=== PATIENT | male | born 1930 | race Caucasian/White ===

== ENCOUNTER 2017-07-19 12:39 | Emergency (ER) | payer MEDICARE, BC ==
--- NOTE | 2017-07-19 13:20 | ERNOTE ---
Integumentary HPI - Narrative Date of Service: 07/19/17 - General Presenting Symptoms: other - "Scratch" on leg Time Seen by Provider: 07/19/17 13:01 Source: patient, RN notes reviewed Exam Limitations: no limitations - Immun/Allergies/Home Medications Immunizations: IMMUNIZATION HX Immunizations Up to Date Yes History of Influenza Vaccine Yes Hx Pneumococcal Vaccination Yes Allergies/Adverse Reactions: Allergies Allergy/AdvReac Type Severity Reaction Status Date / Time Penicillins Allergy Intermediate Swelling Verified 07/19/17 12:56 (Other) Home Medications: HOME MEDICATIONS Metoprolol Succinate 100 mg PO DAILY 07/31/12 [Last Taken Unknown] Amitriptyline HCl [Elavil] 10 mg PO HS #30 tablet 08/16/13 [Last Taken Unknown] Calcium Polycarbophil [Fibercon] 2 tab PO TID #180 tablet 08/16/13 [Last Taken Unknown] Dicyclomine HCl [Bentyl] 10 mg PO TID #90 capsule 08/16/13 [Last Taken Unknown] Furosemide [Lasix] 20 mg PO DAILY #30 tablet 05/28/14 [Last Taken Unknown] Levothyroxine Sodium [Synthroid] 175 mcg PO DAILY@0700 05/28/14 [Last Taken Unknown] Omeprazole [Prilosec] 40 mg PO DAILY #30 cap 05/28/14 [Last Taken Unknown] Terazosin HCl [Hytrin] 5 mg PO HS 05/28/14 [Last Taken Unknown] Albuterol Sulfate [Proair Hfa] 1 - 2 puff IH Q4H PRN #1 inhaler 10/28/14 [Last Taken Unknown] Doxycycline Hyclate [Vibratab] 100 mg PO BID #20 tab 10/28/14 [Last Taken Unknown] predniSONE [Prednisone] 1 tab PO TID #15 tab 10/28/14 [Last Taken Unknown] Levofloxacin 500 mg PO DAILY #10 tablet 10/31/15 [Last Taken Unknown] Tiotropium Cement [Spiriva] 1 cap IH DAILY #30 cap 10/31/15 [Last Taken Unknown ] predniSONE [Prednisone] 3 tab PO DAILY #15 tab 10/31/15 [Last Taken Unknown] Triamcinolone Acetonide [Kenalog 0.1%] 15 gm TP BID #1 tube 07/19/17 [Last Taken Unknown] - History of Present Illness Narrative: Juan is a 86 year old male who presents to the ED for a "scratch" on his right lower leg that has been there for a long time but will not completely go away. He reports that it gets better if he uses vaseline on it for a while, but then it comes back. The area is not painful but does itch occasionally. Location: Reports: lower extremity Quality: Reports: itching Exposure: Reports: no cause identified Prior Treatment: Denies: recently seen Review of Systems - Review of Systems Constitutional: Absent: fever, chills, malaise EYE: Present: no symptoms reported ENT: Present: no symptoms reported Respiratory: Absent: shortness of breath, cough Cardiology: Absent: chest pain, palpitations, edema Gastrointestinal/Abdominal: Absent: nausea, eating less, drinking less Genitourinary: Present: no symptoms reported Musculoskeletal: Absent: joint pain, joint swelling Skin: Present: lesions, change in color. Absent: rash, lumps Neurological: Absent: weakness, numbness, tingling Endocrine: Present: no symptoms reported Hematologic/Lymphatic: Present: no symptoms reported Psych: Present: no symptoms reported - Patient's Past Medical History Patient History - Medical: No pertinent hx Patient History - Cardiac/Respiratory: Hypertension Patient History - Cancer: No Hx of Cancer Patient History - Surgical Procedures: Appendectomy, Other Patient History - Other: None - Social History Living Situations: home Psych History: No pertinent hx Smoking Status: Never smoker Alcohol Use: none Drug Use: none - Immunizations Immunizations Up to Date: Yes Hx Pneumococcal Vaccination: Yes History of Influenza Vaccine: Yes Physical Exam - Physical Exam General Appearance: Present: wd/wn, alert, no apparent distress Head Exam: Present: normal inspection Ears, Nose, Throat: Present: normal except -, hearing decreased Neck: Present: normal inspection, nontender, supple Respiratory: Present: no respiratory distress, normal breath sounds, no accessory muscle use, lungs clear Cardiovascular/Chest: Present: regular rate, rhythm, no murmur, normal peripheral pulses Extremity Exam: Present: non-tender, normal range of motion, no edema Neurological Exam: Present: alert, oriented, normal mood/affect, no motor/ sensory deficits Skin Exam: Present: normal color, warm/dry, other - Dry scaley area to right lower lateral leg, no erythema or edema, nontender to touch ED Progress - Vital Signs Patient's Vital Signs:: I have reviewed the patient's vital signs. 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
[2017-07-19 13:32] VITALS: BP 128/66
== END 2017-07-19 13:22 | disposition home or self-care (01) ==
LOC: ER 12:39
DX: I87.2 Venous insufficiency (chronic) (peripheral)

== ENCOUNTER 2017-08-05 10:23 | Emergency (ER) | payer MEDICARE, BC ==
[2017-08-05] MEDS ORDERED: ACETAMINOPHEN 325 MG TABLET PO ONE (10:44)
[2017-08-05] MEDS ORDERED: ACETAMINOPHEN 325 MG TABLET ONE (10:56)
[2017-08-05 11:01] LABS: Hematocrit 37.6 % (42.0-52.0); Hemoglobin 13.2 gm/dL (13.5-18.0); Mean Cell Volume 93.8 fl (78-100); Mean Corpuscular Hemoglobin 32.9 pg (27-31); Mean Corpuscular Hgb Conc 35.1 g/dl (32-36); Mean Platelet Volume 11.1 fl (6.0-9.5); Neutrophil # 5.1 K/mm3 (1.3-6.0); Neutrophil % 83.3 % (42-75.0); Platelet Count 130 K/mm3 (150-450); Red Blood Count 4.01 M/mm3 (4.7-6.0); Red Cell Distribution Width 12.4 % (11.5-14.0); White Blood Count 6.1 K/mm3 (4.0-10.5)
[2017-08-05 11:15] LABS: Albumin * 3.8 gm/dl (3.4-5.0); Anion Gap 13.2 mmol/L (6.8-13.8); BUN/Creatinine Ratio 14.5 (9.0-21.6); Bilirubin, Total 0.8 mg/dL (0.0-1.1); CRP 3.4 mg/dL (0.0-0.9); Ca. Corrected For Albumin 7.9 mg/dL (8.4-10.2); Calcium * 8.1 mg/dL (7.9-10.9); Potassium 4.2 mmol/L (3.4-4.6)
[2017-08-05 11:22] LABS: Urine Appearance Slightly Cloudy; Urine Bilirubin Negative (NEGATIVE); Urine Blood 250 /ul (NEGATIVE); Urine Color Yellow; Urine Ketone 5 mg/dL (NEGATIVE)
[2017-08-05 11:23] LABS: Urine Bacteria 1+; Urine Fine Granular Cast 0-5 /LPF; Urine Hyaline Cast 0-5 /LPF; Urine Nitrite Negative (NEGATIVE); Urine Protein 100 mg/dL (NEGATIVE); Urine RBC 0-5 /hpf (0-5); Urine Urobilinogen Normal (NORMAL); Urine WBC 0-5 /hpf (0-5)
--- NOTE | 2017-08-05 12:43 | ERNOTE ---
Trauma/Assault HPI - Narrative Date of Service: 08/05/17 - General Stated Complaint: FALL HIT HEAD Time Seen by Provider: 08/05/17 10:36 Source: patient Exam Limitations: dementia - Immun/Allergies/Home Medications Immunizations: IMMUNIZATION HX Immunizations Up to Date Yes History of Influenza Vaccine More Information Required Hx Pneumococcal Vaccination More Information Required Allergies/Adverse Reactions: Allergies Penicillins Allergy (Intermediate, Verified 07/19/17 12:56) Swelling (Other) Home Medications: HOME MEDICATIONS Metoprolol Succinate 100 mg PO DAILY 07/31/12 [Last Taken Unknown] Amitriptyline HCl [Elavil] 10 mg PO HS #30 tablet 08/16/13 [Last Taken Unknown] Calcium Polycarbophil [Fibercon] 2 tab PO TID #180 tablet 08/16/13 [Last Taken Unknown] Dicyclomine HCl [Bentyl] 10 mg PO TID #90 capsule 08/16/13 [Last Taken Unknown] Furosemide [Lasix] 20 mg PO DAILY #30 tablet 05/28/14 [Last Taken Unknown] Levothyroxine Sodium [Synthroid] 175 mcg PO DAILY@0700 05/28/14 [Last Taken Unknown] Omeprazole [Prilosec] 40 mg PO DAILY #30 cap 05/28/14 [Last Taken Unknown] Terazosin HCl [Hytrin] 5 mg PO HS 05/28/14 [Last Taken Unknown] Albuterol Sulfate [Proair Hfa] 1 - 2 puff IH Q4H PRN #1 inhaler 10/28/14 [Last Taken Unknown] Doxycycline Hyclate [Vibratab] 100 mg PO BID #20 tab 10/28/14 [Last Taken Unknown] predniSONE [Prednisone] 1 tab PO TID #15 tab 10/28/14 [Last Taken Unknown] Levofloxacin 500 mg PO DAILY #10 tablet 10/31/15 [Last Taken Unknown] Tiotropium Lebo [Spiriva] 1 cap IH DAILY #30 cap 10/31/15 [Last Taken Unknown ] predniSONE [Prednisone] 3 tab PO DAILY #15 tab 10/31/15 [Last Taken Unknown] Triamcinolone Acetonide [Kenalog 0.1%] 15 gm TP BID #1 tube 07/19/17 [Last Taken Unknown] Oseltamivir Phosphate [Tamiflu] 75 mg PO BID #10 cap 08/05/17 [Last Taken Unknown] - History of Present Illness Narrative: patient fell this am, has been running a fever Location Occurred: Reports: other - correction Pain Location: Reports: head Method of Injury: Reports: fall Modifying Factors - (Improves): Reports: other - nothing Modifying Factors - (Worsens): Reports: movement Loss of Consciousness: Reports: no loss of consciousness Associated Symptoms - Trauma: Reports: dizziness Review of Systems - Narrative Narrative: unremarkable - Review of Systems Constitutional: Present: See HPI EYE: Present: no symptoms reported ENT: Present: nose congestion Respiratory: Present: cough, wheezing Cardiology: Present: no symptoms reported Gastrointestinal/Abdominal: Present: no symptoms reported Genitourinary: Present: no symptoms reported Musculoskeletal: Present: no symptoms reported Skin: Present: no symptoms reported Neurological: Present: no symptoms reported, other - dementia Endocrine: Present: no symptoms reported Hematologic/Lymphatic: Present: no symptoms reported Psych: Present: no symptoms reported - Patient's Past Medical History Patient History - Medical: No pertinent hx, Dementia Patient History - Cardiac/Respiratory: Hypertension Patient History - Cancer: No Hx of Cancer Patient History - Surgical Procedures: Appendectomy, Other Patient History - Other: None - Family History Family History:: no untoward family reactions to anesthesia, no familial bleeding tendencies, no family history of clotting disorders, no family history of premature - Social History Living Situations: assisted living Psych History: No pertinent hx Smoking Status: Never smoker Have you smoked in the past 12 months: No Do you dip or chew tobacco: No Patient requests Smoking Cessation Consult: No Initiate information on Smoking Cessation: No Alcohol Use: rarely Drug Use: none - Immunizations Immunizations Up to Date: Yes Hx Pneumococcal Vaccination: More Information Required to Determine History of Influenza Vaccine: More Information Required to Determine Physical Exam - Physical Exam General Appearance: Present: mild distress, anxious Head Exam: Present: normal inspection, no evidence of injury, other Eye Exam: Sclera injection: right - right hsubconjuntival hemorrhage Ears, Nose, Throat: Present: nasal congestion, sinus pain/drainage Neck: Present: normal inspection, nontender Respiratory: Present: no respiratory distress, wheezing, other - mild wheezing Cardiovascular/Chest: Present: regular rate, rhythm, no murmur, normal peripheral pulses Peripheral Pulses: N=norm/S=strong/W=weak/B=bound/A=absent: Carotid (R): Normal , Carotid (L): Normal, Radial (R): Normal, Radial (L): Normal, Femoral (R): Normal, Femoral (L): Normal, Dorsalis-pedis (R): Normal, Dorsalis-pedis (L): Normal Gastrointestinal/Abdominal: Present: normal bowel sounds, nontender, nondistended, soft, no organomegaly Back Exam: Present: normal inspection, normal range of motion, no CVA tenderness Extremity Exam: Present: normal inspection, non-tender, normal range of motion, no edema Neurological Exam: Present: alert, oriented, normal mood/affect, no motor/ sensory deficits DTR: N=norm/NB=norm/brisk/A=abs/DD=dull/dimin/HC=hyperactive: Bicep (R): Normal , Bicep (L): Normal, Tricep (R): Normal, Tricep (L): Normal, Knee (R): Normal, Knee (L): Normal, Ankle (R): Normal, Ankle (L): Normal Skin Exam: Present: normal color, warm/dry Lymphatic Exam: Present: no adenopathy ED Progress - Date and Time Seen: Date and Time: 08/05/17 12:39 patient improved - Results and Orders Patient's Lab Results:: I have reviewed the patient's lab results. - Vital Signs Patient's Vital Signs:: I have reviewed the patient's vital signs. Vital Signs: Vital Signs 08/05/17 08/05/17 10:31 11:00 Temperature 38.3 C H Pulse Rate 87 83 Respiratory 26 H Rate Blood Pressure 164/85 O2 Sat by Pulse 94 Oximetry - EKG EKG: NSR - X-Ray X-Ray #1 X-Ray: chest - no acute process Interpretation: Discd w/ radiologist - CT/Ultrasound CT/Ultrasound Narrative: no acute process reported by radiologist - Progress/Reassessment Chief Complaint: Fall - Transfer of Care Expected Disposition: Discharge Plan - Plan Plan: to be discharged Departure Clinical Impression: Fall, Influenza A - Departure Disposition: [place] self-care Condition: Fair Instructions: Influenza, Adult, [id number] Prescriptions: Oseltamivir Phosphate [Tamiflu] 75 mg PO BID #10 cap Critical Care Time - Critical Care Critical Time Spent:: No
[2017-08-05 13:47] VITALS: BP 134/88
== END 2017-08-05 12:55 | disposition home or self-care (01) ==
LOC: ER 10:23
DX: J10.1 Influenza due to other identified influenza virus with other respiratory manifestations (principal); H11.31 Conjunctival hemorrhage, right eye; I10 Essential (primary) hypertension; W19.XXXA Unspecified fall, initial encounter; Y92.129 Unspecified place in nursing home as the place of occurrence of the external cause